=== PATIENT | female | born 1945 | race Caucasian/White ===

== ENCOUNTER → 2016-10-30 | Outpatient (CLI) | payer OTHER, BC ==
--- NOTE | 2016-10-30 15:30 | DIAGNOSTIC IMAGING REPORT ---
CHEST 2 VIEWS ROUTINE HISTORY: 71 years-old Female RHONCHI AT LEFT LUNG BASE COMPARISON: None available TECHNIQUE: Frontal and lateral views of the chest FINDINGS: Cardiomediastinal and hilar silhouettes are within normal limits. There is a calcific granuloma of the left lower lobe. Lungs are mildly hyperinflated without pneumothorax or large pleural effusion. Subsegmental atelectasis or scarring is seen within the left lung base with mild blunting of the costophrenic angles. The bones appear to be grossly intact. IMPRESSION: Pulmonary hyperinflation with blunting of the bilateral costophrenic angle suggests associated atelectasis or scarring. Trace pleural effusions could have a similar appearance. The above report was generated using voice recognition software. It may contain grammatical, syntax or spelling errors. Electronically signed by: Rusty Myers M.D. 10/30/2016 3:29 PM Dictated Date/Time: 10/30/2016 3:27 PM
== END | disposition home or self-care (01) ==
LOC: C.RAD1850 15:15
PROVIDERS: ATTEND Physician Assistant
DX: R09.89 Other specified symptoms and signs involving the circulatory and respiratory systems (principal)

== ENCOUNTER → 2017-03-11 | Outpatient (CLI) | payer OTHER, BC ==
[~2017-03-11] MED LIST: ACYC-223 PO; ARFO15NE INH; ASCO1CAP3 PO; ASPI81TA28 PO; CLOP1TAB15 PO; DOXY100C76 PO; EPP3/2 IM; ERGO500037 PO; FERR1TAB62 PO; FLUO20CA35 PO; FURO-85 PO; IPRA1AER2 INH; IPRASOL4 INH; LEVO75TA PO; LVQ500 PO; MONT1TAB3 PO; NRN/300 PO; OMEG10007 PO; PLMINSR25 INH; PRED10TA PO; PRLSR20 PO; PSEU120T21 PO; SIMV20TA2 PO; SUCR1TAB29 PO; TRAM-10 PO; VNTHFA/IN INH; [UNRECOGNIZED DRUG - OTHER] INH
[2017-03-11 16:16] LABS: BLOOD UREA NITROGEN 17 mg/dl (7-18); CARBON DIOXIDE 32 mmol/L (21-32); CREATININE 0.65 mg/dl (0.60-1.20); GLUCOSE 111 mg/dl (70-99); POTASSIUM 3.7 mmol/L (3.5-5.1); SODIUM 138 mmol/L (136-145)
== END | disposition home or self-care (01) ==
LOC: C.LAB1850 15:15
PROVIDERS: ATTEND Physician Assistant
DX: R06.02 Shortness of breath (principal)

== ENCOUNTER → 2017-03-11 | Outpatient (CLI) | payer OTHER, BC ==
--- NOTE | 2017-03-11 14:53 | DIAGNOSTIC IMAGING REPORT ---
CHEST 2 VIEWS ROUTINE CLINICAL HISTORY: R06.02 Shortness of [id number] COMPARISON STUDY: 10/30/2016 FINDINGS: The cardiac and mediastinal contours are normal. There is no evidence of focal pulmonary consolidation. There is no evidence of failure. No pleural effusions are visualized.[There is a calcified granuloma the left lung base. There is a prominent right cardiophrenic angle fat pad. IMPRESSION: No active disease in the chest. Electronically signed by: Nahun Groves M.D. 03/11/2017 2:51 PM Dictated Date/Time: 03/11/2017 2:51 PM
== END | disposition home or self-care (01) ==
LOC: C.RAD1850 14:40
PROVIDERS: ATTEND Physician Assistant
DX: R06.02 Shortness of breath (principal)

== ENCOUNTER 2017-03-12 13:02 | Emergency (ER) | payer OTHER, BC ==
[~2017-03-12] VITALS: Ht 157.5 cm; Wt 76.2 kg
[2017-03-12 13:08] VITALS: TEMP 36.8; Ht 157.5 cm; Wt 76.2 kg
[2017-03-12 14:02] LABS: BASO % 0.2 %; BASO ABS # 0.02 K/uL (0-0.2); COMPLETE YES; EOS % 0.4 %; HEMATOCRIT 41.6 % (37-47); IG% 0.4 %; LYMPH ABS # 3.13 K/uL (1.2-3.4); MEAN CORPUSCULAR HEMOGLOBIN 34.4 pg (25-34); MEAN CORPUSCULAR HGB CONC 34.4 g/dl (32-36); MONO % 7.1 %; NEUT % 66.9 %; PLATELET COUNT 213 K/uL (130-400); RED BLOOD COUNT 4.16 M/uL (4.2-5.4); WHITE BLOOD COUNT 12.52 K/uL (4.8-10.8)
[2017-03-12] MEDS ORDERED: FLUO20CA35 PO (14:10)
[2017-03-12] MEDS ORDERED: PRLSR20 PO (14:10)
[2017-03-12] MEDS ORDERED: IPRA1AER2 INH (14:10)
[2017-03-12] MEDS ORDERED: EPP3/2 IM (14:10)
[2017-03-12] MEDS ORDERED: CLOP1TAB15 PO (14:10)
[2017-03-12] MEDS ORDERED: VNTHFA/IN INH (14:10)
[2017-03-12] MEDS ORDERED: SUCR1TAB29 PO (14:10)
[2017-03-12] MEDS ORDERED: PRED10TA PO (14:10)
[2017-03-12] MEDS ORDERED: ASPI81TA28 PO (14:10)
[2017-03-12] MEDS ORDERED: SIMV20TA2 PO (14:10)
[2017-03-12] MEDS ORDERED: ARFO15NE INH (14:10)
[2017-03-12] MEDS ORDERED: PSEU120T21 PO (14:10)
[2017-03-12] MEDS ORDERED: DOXY100C76 PO (14:10)
[2017-03-12] MEDS ORDERED: LEVO75TA PO (14:10)
[2017-03-12] MEDS ORDERED: MONT1TAB3 PO (14:10)
[2017-03-12 14:11] LABS: PARTIAL THROMBOPLASTIN RATIO 0.9; PROTHROMBIN TIME (PATIENT) 10.8 SECONDS (9.0-12.0)
[2017-03-12] MEDS ORDERED: ACYC-223 PO (14:11)
[2017-03-12] MEDS ORDERED: [UNRECOGNIZED DRUG - OTHER] INH (14:11)
[2017-03-12] MEDS ORDERED: OMEG10007 PO (14:11)
[2017-03-12] MEDS ORDERED: NRN/300 PO (14:11)
[2017-03-12] MEDS ORDERED: IPRASOL4 INH (14:11)
[2017-03-12] MEDS ORDERED: FERR1TAB62 PO (14:11)
[2017-03-12] MEDS ORDERED: FURO-85 PO (14:11)
[2017-03-12] MEDS ORDERED: LVQ500 PO (14:11)
[2017-03-12] MEDS ORDERED: ASCO1CAP3 PO (14:11)
[2017-03-12] MEDS ORDERED: ERGO500037 PO (14:11)
[2017-03-12] MEDS ORDERED: PLMINSR25 INH (14:11)
[2017-03-12] MEDS ORDERED: TRAM-10 PO (14:11)
--- NOTE | 2017-03-12 14:13 | DIAGNOSTIC IMAGING REPORT ---
CHEST ONE VIEW PORTABLE CLINICAL HISTORY: 71 years-old Female presenting with cough. TECHNIQUE: Portable upright AP view of the chest was obtained. COMPARISON: 03/11/2017. FINDINGS: Cardiomediastinal silhouette normal. Calcified granuloma noted in the right lung base. No new focal infiltrate. No pleural effusion or pneumothorax. Degenerative changes of the left glenohumeral joint. Upper abdomen normal. IMPRESSION: 1. No acute cardiopulmonary disease. Electronically signed by: Deondre Titus M.D. 03/12/2017 2:12 PM Dictated Date/Time: 03/12/2017 2:11 PM
[2017-03-12 14:32] LABS: ALKALINE PHOSPHATASE 94 U/L (45-117); ALT/SGPT 32 U/L (12-78); AST/SGOT 19 U/L (15-37); BLOOD UREA NITROGEN 14 mg/dl (7-18); BUN/CREATININE RATIO 19.7 (10-20); C-REACTIVE PROTEIN < 0.29 mg/dl (0-0.29); CARBON DIOXIDE 27 mmol/L (21-32); CHLORIDE 105 mmol/L (98-107); CREATININE 0.71 mg/dl (0.60-1.20); GLUCOSE 89 mg/dl (70-99); POTASSIUM 3.1 mmol/L (3.5-5.1); SODIUM 139 mmol/L (136-145)
--- NOTE | 2017-03-12 14:34 | DIAGNOSTIC IMAGING REPORT ---
HEAD CT NONCONTRAST CT DOSE: 614.27 mGy.cm HISTORY: Left-sided headache. TECHNIQUE: Multiaxial CT images of the head were performed without the use of intravenous contrast. Automated exposure control was utilized for this study. A dose lowering technique was utilized adhering to the principles of ALARA. Comparison: None. Findings: The paranasal sinuses and mastoid air cells are clear. The calvarium and skull base are intact. The ventricles and sulci are within normal limits. There is no mass, hematoma, midline shift, or acute infarct. Impression: No acute intracranial abnormality. Electronically signed by: José Miguel oFurnier M.D. 03/12/2017 2:33 PM Dictated Date/Time: 03/12/2017 2:24 PM
--- NOTE | 2017-03-12 15:01 | EMERGENCY ROOM VISIT NOTE ---
History Report prepared by Rivas: Sonya Rutledge Under the Supervision of: Dr. Kerwin Borges D.O. First contact with patient: 13:06 Chief Complaint: EYE ASSESSMENT Stated Complaint: ASTHMA, SHINGLES, REFFERED BY DR MEZA History of Present Illness The patient is a 71 year old female who presents to the Emergency Room with complaints of constant left eye pain for 14 hours [employer]. She notes the pain began last night and has persisted all day today. She rates the pain a 6/10 in severity. She also notes asthma exacerbation with difficulty inhaling and exhaling for one week [employer]. She has a history of asthma. She has taken two nebulizer treatments in the last 12 hours. She notes that she went to PCP yesterday and they prescribed her Doxycycline and Prednisone, though she has not taken any doses of the Prednisone. She notified her PCP that the pain in her left eye has not dissipated and she was advised to come to the ED to have her right eye evaluated. She notes that it feels like something is "in my eye, like something is crawling." She also notes a sore throat and headache. She has shingles, which began July 2015. She notes the shingles is in her left eye and forehead. She notes new lesions to her forehead, but does not know if she has new lesions in her left eye. Her PCP also administered Solu-Medrol yesterday. She is taking acyclovir daily. She has a history of CAD. She denies any history of cancer, [place], or blood clots. She has a history of cholecystectomy and right oophorectomy. Source of History: patient Onset: 14 hours [employer] Position: eye (right) Symptom Intensity: 6/10 Timing: constant Associated Symptoms: + headache, + sorethroat Note: She notes asthma exacerbation with difficulty inhaling and exhaling. Review of Systems See HPI for pertinent positives & negatives. A total of 10 systems reviewed and were otherwise negative. Past Medical & Surgical Medical Problems: (1) Asthma (2) Bronchitis (3) CAD (coronary artery disease) (4) Ovarian cyst (5) PNA (pneumonia) (6) Shingles Surgical Problems: (1) History of cholecystectomy Family History Diabetes mellitus Hypertension Lung disease Social History Smoking Status: Never Smoker Smokeless Tobacco Use: No Alcohol Use: none Drug Use: none Marital Status: Housing Status: lives with significant other Occupation Status: unemployed Current/Historical Medications Scheduled Acyclovir (Zovirax), 800 MG PO 5 TIMES DAILY Ascorbic Acid (Vitamin C), 500 MG PO DAILY Aspirin (Aspirin Ec), 81 MG PO DAILY Budesonide (Pulmicort Respules 0.25MG/2ML), 2 ML INH DAILY Clopidogrel (Plavix), 75 MG PO DAILY Doxycycline Monohydrate (Monodox), 100 MG PO Q12 Epinephrine (Epipen), 0.3 MG IM UD Ergocalciferol (Vitamin D 45752 Unit), 50,000 UNIT PO WK Ferrous Sulfate (Ferrous Sulfate), 325 MG PO TID Fish Oil ([place]-3), 1 CAP PO DAILY Fluoxetine (Prozac), 20 MG PO DAILY Levofloxacin (Levofloxacin), 500 MG PO DAILY Levothyroxine Sodium (Synthroid), 75 MCG PO DAILY Montelukast Sodium (Singulair), 10 MG PO HS Omeprazole (Prilosec), 20 MG PO BID Prednisone (Prednisone), 0 PO UD Simvastatin (Zocor), 20 MG PO QPM Sucralfate (Carafate), 2 GM PO BID Scheduled PRN Albuterol Hfa (Ventolin Hfa), 2-4 PUFFS INH Q6H PRN for SOB/Wheezing Arformoterol Tartrate (Brovana), 15 MCG INH BID PRN for SOB/Wheezing Cromolyn Sodium (Cromolyn Sodium), 1 UNIT INH QID PRN for SOB/Wheezing Furosemide (Lasix), 10 MG PO DAILY PRN for EDEMA Gabapentin (Neurontin), 300 MG PO TID PRN for Anxiety Ipratropium-Albuterol (Combivent Respimat), 1 PUFFS INH QID PRN for SOB/Wheezing Ipratropium-Albuterol (Duoneb), 1 TREATMENT INH Q4H PRN for SOB/Wheezing Pseudoephedrine-Guaifenesin (Mucinex D), 1 TAB PO Q12 PRN for Cough Tramadol (Ultram), 50 MG PO Q8H PRN for Pain Allergies Coded Allergies: Aspartame (Unverified Allergy, Unknown, ., 03/12/17) Atorvastatin (Unverified Allergy, Unknown, ., 03/12/17) Azithromycin (Unverified Allergy, Unknown, ., 03/12/17) Latex (Unverified Allergy, Unknown, ., 03/12/17) Penicillins (Unverified Allergy, Unknown, ., 03/12/17) Sulfa Antibiotics (Unverified Allergy, Unknown, ., 03/12/17) Wasp (Unverified Allergy, Unknown, ., 03/12/17) Physical Exam Vital Signs Date Time Temp Pulse Resp B/P (MAP) Pulse Ox O2 Delivery O2 Flow Rate FiO2 03/12/17 15:41 68 16 164/86 98 03/12/17 15:10 72 16 164/85 94 Room Air 03/12/17 13:21 97 Room Air 03/12/17 13:08 36.8 83 17 199/95 96 Room Air Physical Exam GENERAL: Patient is awake, alert, and in no acute distress. Patient is resting comfortably and showing no signs of anxiety EYES: The conjunctivae are clear. The pupils are round and reactive. EARS, NOSE, MOUTH AND THROAT: The nose is without any evidence of any deformity. Mucous membranes are moist tongue is midline. TMs clear bilaterally. NECK: The neck is nontender and supple. RESPIRATORY: Normal respiratory effort is noted there is no evidence of rhonchi or rales. Faint expiratory wheezing noted on exhalation. CARDIOVASCULAR: Regular rate and rhythm noted there no murmurs rubs or gallops normal S1 normal S2 GASTROINTESTINAL: The abdomen is soft. Bowel sounds are present in all quadrants. Abdomen is nontender MUSCULOSKELETAL/EXTREMITIES: There is no evidence of gross deformity full range of motion is noted in the hips and shoulders SKIN: There is no obvious evidence of any rash. There are no petechiae, pallor or cyanosis noted. NEUROLOGIC: Patient is awake alert and oriented x3 strength is symmetric patellar reflexes are 2+ bilaterally Medical Decision & Procedures ER Provider Diagnostic Interpretation: Radiology results as stated below per my review and radiologist interpretation: CHEST ONE VIEW PORTABLE CLINICAL HISTORY: 71 years-old Female presenting with cough. TECHNIQUE: Portable upright AP view of the chest was obtained. COMPARISON: 03/11/2017. FINDINGS: Cardiomediastinal silhouette normal. Calcified granuloma noted in the right lung base. No new focal infiltrate. No pleural effusion or pneumothorax. Degenerative changes of the left glenohumeral joint. Upper abdomen normal. IMPRESSION: 1. No acute cardiopulmonary disease. Electronically signed by: Deondre Titus M.D. 03/12/2017 2:12 PM Dictated Date/Time: 03/12/2017 2:[address] CT DOSE: 614.27 mGy.cm HISTORY: Left-sided headache. TECHNIQUE: Multiaxial CT images of the head were performed without the use of intravenous contrast. Automated exposure control was utilized for this study. A dose lowering technique was utilized adhering to the principles of ALARA. Comparison: None. Findings: The paranasal sinuses and mastoid air cells are clear. The calvarium and skull base are intact. The ventricles and sulci are within normal limits. There is no mass, hematoma, midline shift, or acute infarct. Impression: No acute intracranial abnormality. Electronically signed by: José Miguel Fournier M.D. 03/12/2017 2:33 PM Dictated Date/Time: 03/12/2017 2:24 PM Laboratory Results 03/12/17 13:45 Red Blood Count 4.16, Mean Corpuscular Volume 100.0, Mean Corpuscular Hemoglobin 34.4, Mean Corpuscular Hemoglobin Concent 34.4, Mean Platelet Volume 9.0, Neutrophils (%) (Auto) 66.9, Lymphocytes (%) (Auto) 25.0, Monocytes (%) ( Auto) 7.1, Eosinophils (%) (Auto) 0.4, Basophils (%) (Auto) 0.2, Neutrophils # ( Auto) 8.38, Lymphocytes # (Auto) 3.13, Monocytes # (Auto) 0.89, Eosinophils # ( Auto) 0.05, Basophils # (Auto) 0.02 03/12/17 13:45 Test 03/12/17 13:45 White Blood Count 12.52 K/uL (4.8-10.8) Red Blood Count 4.16 M/uL (4.2-5.4) Hemoglobin 14.3 g/dL (12.0-16.0) Hematocrit 41.6 % (37-47) Mean Corpuscular Volume 100.0 fL (80-100) Mean Corpuscular Hemoglobin 34.4 pg (25-34) Mean Corpuscular Hemoglobin Concent 34.4 g/dl (32-36) Platelet Count 213 K/uL (130-400) Mean Platelet Volume 9.0 fL (7.4-10.4) Neutrophils (%) (Auto) 66.9 % Lymphocytes (%) (Auto) 25.0 % Monocytes (%) (Auto) 7.1 % Eosinophils (%) (Auto) 0.4 % Basophils (%) (Auto) 0.2 % Neutrophils # (Auto) 8.38 K/uL (1.4-6.5) Lymphocytes # (Auto) 3.13 K/uL (1.2-3.4) Monocytes # (Auto) 0.89 K/uL (0.11-0.59) Eosinophils # (Auto) 0.05 K/uL (0-0.5) Basophils # (Auto) 0.02 K/uL (0-0.2) RDW Standard Deviation 49.0 fL (36.4-46.3) RDW Coefficient of Variation 13.5 % (11.5-14.5) Immature Granulocyte % (Auto) 0.4 % Immature Granulocyte # (Auto) 0.05 K/uL (0.00-0.02) Erythrocyte Sedimentation Rate 2 mm/hr (0-21) Prothrombin Time 10.8 SECONDS (9.0-12.0) Prothromb Time International Ratio 1.0 (0.9-1.1) Activated Partial Thromboplast Time 24.5 SECONDS (21.0-31.0) Partial Thromboplastin Ratio 0.9 Anion Gap 7.0 mmol/L (3-11) Est Creatinine Clear Calc Drug Dose 70.5 ml/min Estimated GFR () 100.0 Estimated GFR (Non- 86.3 BUN/Creatinine Ratio 19.7 (10-20) Calcium Level 9.0 mg/dl (8.5-10.1) Total Bilirubin 0.6 mg/dl (0.2-1) Direct Bilirubin 0.1 mg/dl (0-0.2) Aspartate Amino Transf (AST/SGOT) 19 U/L (15-37) Alanine Aminotransferase (ALT/SGPT) 32 U/L (12-78) Alkaline Phosphatase 94 U/L (45-117) Troponin I < 0.015 ng/ml (0-0.045) C-Reactive Protein < 0.29 mg/dl (0-0.29) Total Protein 7.0 gm/dl (6.4-8.2) Albumin 3.7 gm/dl (3.4-5.0) Lipase 51 U/L (73-393) Laboratory results per my review. ECG Indication: other (left eye pain) Rate (beats per minute): 71 Rhythm: normal sinus Findings: no ectopy, other (no acute ST segment abnormalities ) Comparison ECG Date: no prior available ED Course 1318: The patient was evaluated in room C4. A complete history and physical examination were performed. 1455: I reassessed the patient at this time. She is feeling better and resting comfortably. 1506: I spoke with Dr. Elaine, registered art therapist. We discussed the patients case. He will follow up with the patient tomorrow. 1520: I reassessed the patient at this time. She is feeling better and resting comfortably. I discussed the results and treatment plan with the patient. I answered all pertaining questions that she had. She expressed understanding and verbalized agreement. The patient will be discharged home. Medical Decision Prior records/ancillary studies reviewed. Triage Nursing notes reviewed. The patient's history was concerning for headache. Differential diagnosis: Etiologies such as migraine headache, meningitis, sinusitis, CO exposure, ICH, SAH, infection, tumor, headache, sinus thrombosis, arterial dissection, as well as others were entertained. The patient is a 71-year-old female who presented to the emergency department for an evaluation of headache and left eye pain. The patient has a history of shingles in the past. She was started on medications for shingles recently. 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 The patient states it because of this she is very careful anytime she has any symptoms that could be related to shingles. The patient was seen by her primary care physician and was referred to her primary registered art therapist but it sounds as though the registered art therapist is out of the office this week until . They were concerned that she needs to be seen by registered art therapist acutely so she was sent to the emergency department for further evaluation. The patient does not appear to have any definite shingles noted on the skin at this time. She also does not have any uptake of fluorescein on the left cornea. Fluorescein staining and slit-lamp examination did not reveal any uptake on the left cornea. I discussed the patient's laboratory radiographic studies with her. I also discussed her case with the on-call hospitalist. They've agreed to evaluate the patient in emergency department for further management and disposition. Medication Reconcilliation Current Medication List: was personally reviewed by me Blood Pressure Screening Patient's blood pressure: Elevated blood pressure Blood pressure disposition: Elevated BP felt to be situational Consults Time Called: 1500 Consulting Physician: Dr. Elaine, opthalmologist Returned Call: 1506 I spoke with . We discussed the patients case. He will follow up with the patient tomorrow. Impression Primary Impression: Headache Additional Impression: Left eye pain Scribe Attestation The scribe's documentation has been prepared under my direction and personally reviewed by me in its entirety. I confirm that the note above accurately reflects all work, treatment, procedures, and medical decision making performed by me. Departure Information Dispostion Home / Self-Care Referrals Solomon Meza M.D. (PCP) Forms HOME CARE DOCUMENTATION FORM, IMPORTANT VISIT INFORMATION, WORK / SCHOOL INSTRUCTIONS Patient Instructions Headache Pain, [facility], Shingles Herpes Zoster Additional Instructions Call the registered art therapist in the morning to schedule a follow-up appointment. Continue all medications as prescribed. Return to the emergency department if symptoms worsen or if need arises. Problem Qualifiers Primary Impression: Headache Headache type: unspecified Headache chronicity pattern: acute headache Intractability: not intractable Qualified Codes: R51 - Headache
[2017-03-12 15:41] VITALS: BP 164/86; PULSE 68; O2SAT 98
== END 2017-03-12 15:40 | disposition home or self-care (01) ==
LOC: C.EDB 13:03 → C.EDC 15:40
DX: R51 Headache (principal); H57.12 Ocular pain, left eye; J45.909 Unspecified asthma, uncomplicated; I25.10 Atherosclerotic heart disease of native coronary artery without angina pectoris; Z87.01 Personal history of pneumonia (recurrent); Z90.49 Acquired absence of other specified parts of digestive tract; Z90.721 Acquired absence of ovaries, unilateral; Z83.3 Family history of diabetes mellitus; Z82.49 Family history of ischemic heart disease and other diseases of the circulatory system